=== PATIENT | male | born 1980 | race Caucasian/White ===

== ENCOUNTER 2016-05-20 06:23 | Emergency (ER) | payer OTHER ==
[~2016-05-20] VITALS: Wt 72.0 kg
[2016-05-20] MEDS ORDERED: HYDROCODONE/APAP (5/325) TAB PO ONE (07:00)
--- NOTE | 2016-05-20 08:19 | RADRPT ---
PROCEDURE: XR Ankle. CLINICAL INDICATION: Right ankle pain following injury TECHNIQUE: 3 views of the right ankle are available for review COMPARISON: None available FINDINGS: The osseous structures demonstrate normal alignment and mineralization. No acute fracture or disloc ation is seen. The ankle mortise is intact. No periostitis or osteochondral lesion is identified. No significant soft tissue abnormality is seen. IMPRESSION: Unremarkable right ankle x-ray series. RPTAT: HH .Gladis Cabrera MD, MD Date Time Electronically viewed and signed by .Gladis Cabrera MD, MD on 05/20/2016 08:19 .G/
--- NOTE | 2016-05-20 08:37 | RADRPT ---
PROCEDURE: XR Tibia and Fibula. CLINICAL INDICATION: Right leg pain without trauma TECHNIQUE: AP and lateral views of the right tibia and fibula are available for review. COMPARISON: None available FINDINGS: The osseous structures demonstrate normal alignment and mineralization. No acute fracture or disloc ation is seen. There is a nonspecific area of sclerosis along the posterior cortex of the proximal tibia. No radiopaque foreign body is identified. The soft tissues are unremarkable. IMPRESSION: Nonspecific, nonaggressive area of sclerosis along the posterior cortex of the proximal tibia, possi akilah reflecting a healing fibro osseous lesion. RPTAT: HH .Gladis Cabrera MD, MD Date Time Electronically viewed and signed by .Gladis Cabrera MD, on 05/20/2016 08:36 .G/
[2016-05-20] MEDS ORDERED: HYDR-906 PO (08:48)
[2016-05-20] MEDS ORDERED: NAPR-260 PO (08:48)
--- NOTE | 2016-05-20 10:51 | ERD ---
ER Documentation Chief Complaint Date/Time DATE: 05/20/16 TIME: 10:47 Chief Complaint right ankle pain from yesterday unknown trauma. no deformity HPI This is a 35-year-old male that presents to the ER with right ankle pain that started yesterday. 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 When he got home he noticed that his right ankle was hurting. Pain radiates up into his tibia/fibula. Patient also noticed that he had a little bit of swelling. Pain is described as throbbing in quality and has been constant and worse whenever he walks. Patient tried taking Tylenol however did. Denies any falls. He denies any fevers or chills. ROS 12 point review of systems was done, all negative except per HPI. Medications Home Meds Active Scripts Hydrocodone/Acetaminophen (Suffield 5-325 Tablet) 1 Each Tablet, 1 TAB PO Q6H Y for PAIN, #15 TAB Prov:MARK,KENNEHT C 05/20/16 Naproxen* (Naprosyn*) 500 Mg Tablet, 500 MG PO BID Y for PAIN AND/OR INFLAMMATION, #30 TAB Prov:MARK,KENNETH C 05/20/16 Allergies Allergies: Coded Allergies: No Known Allergy (Unverified , 05/20/16) PMhx/Soc Medical and Surgical Hx: pt denies Medical Hx, pt denies Surgical Hx History of Surgery: No Anesthesia Reaction: No Hx Neurological Disorder: No Hx Respiratory Disorders: No Hx Cardiac Disorders: No Hx Psychiatric Problems: No Hx Miscellaneous Medical Probl: No Hx Alcohol Use: Yes (socially) Hx Substance Use: No Hx Tobacco Use: No Smoking Status: Never smoker Physical Exam Vitals Vital Signs Date Time Temp Pulse Resp B/P Pulse Ox O2 Delivery O2 Flow Rate FiO2 05/20/16 06:25 97.8 85 21 131/72 98 Physical Exam GENERAL: The patient is well developed and appropriate for usual state of health , in no apparent distress. HEENT: Atraumatic. CHEST: Clear to auscultation bilaterally. There are no rales, wheezes or rhonchi. HEART: Regular rate and rhythm. No murmurs, clicks, rubs or gallops. EXTREMITIES: Slight swelling to the right lateral malleolus, tender to palpation to lateral malleolus. Tender to palpation along distal tibia and fibula. Negative squeeze test negative tarsal twist tests. +2 pulses. normal capillary refill. NEURO: Alert and oriented. Cranial nerves II through XII are intact. Motor strength in all 4 extremities with 5/5 strength. Sensation grossly intact. Normal speech and gait. SKIN: There is no apparent rash or petechia. The skin is warm and dry. Results 24 hrs Current Medications Medications (Trade) Dose Ordered Sig/Royal Route PRN Reason Start Time Stop Time Status Last Admin Dose Admin Acetaminophen/ Hydrocodone Bitart (Suffield (5/325)) 1 tab ONCE ONCE PO 05/20/16 07:00 05/20/16 07:01 DC 05/20/16 07:05 Procedures/MDM This is a 35-year-old male presents to the ER with left ankle pain. At this time patient does not have any fractures or dislocations. He is n/v intact. This is likely a sprain. He will be sent home with ibuprofen with Suffield. Recent follow-up with his primary care provider within 1-2 days return to ER sooner if symptoms worsen. Medical decision making was felt the patient understands and agrees with plan. Departure Diagnosis: Primary Impression: Ankle pain Condition: Stable Patient Instructions: Treating Ankle Sprains Additional Instructions: Call your primary care doctor TOMORROW for an appointment during the next 1-2 days.See the doctor sooner or return here if your condition worsens before your appointment time. KENNEHT FLORES May 20, 2016 10:51
== END 2016-05-20 09:15 | disposition home or self-care (01) ==
LOC: FTE 06:23
DX: M25.571 Pain in right ankle and joints of right foot (principal)
CPT/HCPCS: 73590